=== PATIENT | female | born 1940 | race Caucasian/White ===

== ENCOUNTER 2023-08-09 13:23 | Inpatient (IN) | payer MEDICARE, OTHER, SELFPAY ==
[2023-08-09] VITALS (41 sets, daily range): BP systolic 133–189; BP diastolic 56–110; PULSE 71–96; RESP 10–32; TEMP 36.5–36.8; O2SAT 80–98; BMI 21.0; BMI 21.7
--- NOTE | 2023-08-09 13:39 | ECG_ITS ---
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
--- NOTE | 2023-08-09 13:39 | ED_ITS ---
HPI - Weakness General Chief complaint: Weakness Stated complaint: WEAKNESS Time Seen by Provider: 08/09/23 13:39 History of Present Illness HPI Narrative: To have history of trigeminal neuralgia as well as Parkinson disease and hypertension coming to the ER with few days history of increased decreased p.o. intake and generalized weakness, the patient had 1 episode of nausea and vomiting according to the there was no diarrhea The patient also have no abdominal pain no chest pain no cough no fever and no burning with urination Related Data Home Medications Medication Instructions Recorded Confirmed aspirin 81 mg tablet,delayed 81 mg PO DAILY 08/09/23 08/09/23 release (Adult Low Dose Aspirin) carbamazepine 200 mg tablet 200 mg PO DAILY 08/09/23 08/09/23 carbidopa 25 mg-levodopa 100 mg 1 tab PO TID 08/09/23 08/09/23 tablet cholecalciferol (vitamin D3) 125 125 mcg PO DAILY 08/09/23 08/09/23 mcg (5,000 unit) tablet (Vitamin D3) famotidine 40 mg tablet 40 mg PO .qhs 08/09/23 08/09/23 levothyroxine 150 mcg tablet 150 mcg PO QAM 08/09/23 08/09/23 losartan 100 mg tablet 100 mg PO QDAY 08/09/23 08/09/23 pyridoxine (vitamin B6) 100 mg 100 mg PO DAILY 08/09/23 08/09/23 tablet Allergies Allergy/AdvReac Type Severity Reaction Status Date / Time Sulfa (Sulfonamide Allergy Severe Anaphylaxis Verified 08/09/23 13:29 Antibiotics) Review of Systems ROS Status of ROS 10 or more systems reviewed and unremarkable except as noted in history and below [facility] Medical History (Updated 08/09/23 @ 17:08 by ) Social History Smoking status: Never smoker Exam Narrative Exam Narrative: Nurses notes and vital signs reviewed and patient is not hypoxic. General: Well-appearing and in no apparent distress. Skin: Warm, dry, no pallor noted. No rash. Head: Normocephalic, atraumatic. Neck: Supple, non-tender. Eye: Pupils are equal, round and EOMI. No scleral icterus. Ears, Nose, Mouth, and Throat: TM are clear, no nasal mucosal hypertrophy. Oral mucosa is moist, no posterior oropharynx erythema, uvula is mid-line Cardiovascular: Regular Rate and Rhythm without murmur, gallop or rub. Respiratory: No accessory muscle use or respiratory distress. Lungs are clear to auscultation, no wheezing, rales or rhonchi Chest Wall: no tenderness Back: No midline thoracic or lumbar vertebral tenderness. No CVA tenderness Musculoskeletal: normal ROM, no calf or popliteal tenderness, no lower extremity edema/swelling GI: Abdomen is soft, non-distended. Normal bowel sounds. No masses appreciated. No tenderness to palpation. No rebound, guarding, or rigidity noted. Neurological: A&O x4. No cranial nerve dysfunction observed. No truncal ataxia. Moves all extremities. Sensation intact. Psychiatric: Cooperative and interactive. Normal mood and affect. Constitutional Vital Signs, click to edit/add: Last Vital Signs Temp 97.7 F 08/09/23 13:27 Pulse 80 08/09/23 16:30 Resp 20 08/09/23 16:30 BP 175/88 H 08/09/23 16:30 Pulse Ox 95 08/09/23 16:30 O2 Del Method Room Air 08/09/23 13:27 Course Vital Signs Vital signs: Vital Signs Temperature 97.7 F 08/09/23 13:27 Pulse Rate 82 08/09/23 13:27 Respiratory Rate 16 08/09/23 13:27 Blood Pressure 164/56 H 08/09/23 13:27 Pulse Oximetry 95 08/09/23 13:27 Oxygen Delivery Method Room Air 08/09/23 13:27 Temperature 97.7 F 08/09/23 13:27 Pulse Rate 80 08/09/23 16:30 Respiratory Rate 20 08/09/23 16:30 Blood Pressure 175/88 H 08/09/23 16:30 Pulse Oximetry 95 08/09/23 16:30 Oxygen Delivery Method Room Air 08/09/23 13:27 MDM - Weakness MDM Narrative Medical decision making narrative: EKG showing sinus rhythm with a heart rate of [address] elevation or depression The patient CBC shows leukocytosis chemistry showing some acute kidney injury and after obtaining blood culture the patient was started on Zosyn urinalysis showed no UTI CAT scan abdomen pelvis shows picture of proctocolitis CT of the head showed no acute pathology Right now the patient will be admitted for further hydration as well as management of colitis the patient was started on Zosyn and the case was discussed with Dr. Mccray and he agreed to above-mentioned plan Lab Data Labs: Lab Results 08/09/23 08/09/23 Range/Units 13:50 16:25 WBC 19.2 H (4.0-11.0) 10^3/uL RBC 2.94 L (4.20-5.40) 10^6/uL Hgb 9.9 L (12.0-16.0) g/dL Hct 29.9 L (36.0-48.0) % MCV 101.7 H (81.0-99.0) fL MCH 33.7 (26.7-34.0) pg MCHC 33.1 (29.9-35.2) g/dL RDW 13.2 (11.0-15.0) % Plt Count 323 (150-450) 10^3/uL MPV 11.2 (9.5-13.5) fL Neut % (Auto) 85.8 H (43.0-75.0) % Lymph % (Auto) 5.4 L (20.5-60.0) % [place] % (Auto) 7.5 (1.7-12.0) % Eos % (Auto) 0.2 L (0.9-7.0) % Baso % (Auto) 0.4 (0.2-2.0) % Neut # (Auto) 16.5 H (1.4-6.5) 10^3/uL Lymph # (Auto) 1.0 L (1.2-3.8) 10^3/uL [place] # (Auto) 1.4 H (0.3-0.8) 10^3/uL Eos # (Auto) 0.0 (0.0-0.7) 10^3/uL Baso # (Auto) 0.1 (0.0-0.1) 10^3/uL Abs Immat Gran (auto) 0.14 H (0.00-0.03) 10^3/uL Imm/Tot Granulo (auto) 0.7 H (0.0-0.5) % Sodium 135 L (136-145) mmol/L Potassium 4.0 (3.5-5.1) mmol/L Chloride 99 (98-107) mmol/L Carbon Dioxide 24.1 (21.0-32.0) mmol/L Anion Gap 15.9 BUN 23.0 H (7.0-18.0) mg/dL Creatinine 1.53 H (0.55-1.02) mg/dL Est GFR ( Amer) 39 L (>=60) Est GFR (Non-Af Amer) 32 L (>=60) BUN/Creatinine Ratio 15.0 Glucose 110 H (74-106) mg/dL Lactate 1.4 (0.4-2.0) mmol/L Calcium 9.3 (8.5-10.1) mg/dL Total Bilirubin 0.5 (0.2-1.0) mg/dL AST 27 (15-37) U/L ALT 21 (14-59) U/L Alkaline Phosphatase 74 (46-116) U/L Troponin I High Sens 6.6 (4.0-51.3) pg/mL Total Protein 7.0 (6.4-8.2) g/dL Albumin 3.7 (3.4-5.0) g/dL Globulin 3.3 g/dL Albumin/Globulin Ratio 1.1 Urine Color Yellow (YELLOW) Urine Clarity Clear (CLEAR) Urine pH 6.0 (5.0-9.0) Ur Specific [place] 1.020 (1.005-1.025) Urine Protein 30 A (NEG/TRACE) mg/dL Urine Glucose (UA) Negative (NEGATIVE) mg/dL Urine Ketones Negative (NEGATIVE) mg/dL Urine Occult Blood Negative (NEGATIVE) Urine Nitrite Negative (NEGATIVE) Urine Bilirubin Negative (NEGATIVE) Urine Urobilinogen 0.2 (0.2-1.0) EU/dL Ur Leukocyte Esterase Negative (NEGATIVE) Urine RBC 0-2 (0-2) #/HPF Urine WBC None seen (NONE SEEN) #/HPF Ur Squamous Epith Cells Few A (NONE/RARE) #/LPF Urine Crystals None seen (None Seen) #/HPF Urine Bacteria Small A (NONE SEEN) #/HPF Urine Casts None seen (NONE SEEN) #/LPF Urine Mucus None seen (NONE SEEN) Ur Culture Indicated? Yes Discharge Plan Discharge Chief Complaint: Weakness Clinical Impression: CECY (acute kidney injury), Generalized muscle weakness, Proctocolitis, Leukocytosis Patient Disposition: Admitted As Inpatient Time of Disposition Decision: 17:07 Condition: Good
[2023-08-09 14:03] LABS: Basophils Absolute Auto 0.1 10^3/uL (0.0-0.1); Basophils Percent Auto 0.4 % (0.2-2.0); Eosinophils Percent Auto 0.2 % (0.9-7.0); Hematocrit 29.9 % (36.0-48.0); Hemoglobin 9.9 g/dL (12.0-16.0); Immature Granulocytes Abs Auto 0.14 10^3/uL (0.00-0.03); Immature Granulocytes Pct Auto 0.7 % (0.0-0.5); Lymphocytes Percent Auto 5.4 % (20.5-60.0); Mean Corpuscular HGB Conc 33.1 g/dL (29.9-35.2); Mean Corpuscular Hemoglobin 33.7 pg (26.7-34.0); Mean Corpuscular Volume 101.7 fL (81.0-99.0); Mean Platelet Volume 11.2 fL (9.5-13.5); Monocytes Absolute Auto 1.4 10^3/uL (0.3-0.8); Monocytes Percent Auto 7.5 % (1.7-12.0); Neutrophils Absolute Auto 16.5 10^3/uL (1.4-6.5); Neutrophils Percent Auto 85.8 % (43.0-75.0); Platelet Count 323 10^3/uL (150-450); Red Blood Count 2.94 10^6/uL (4.20-5.40); Red Cell Distribution Width 13.2 % (11.0-15.0); White Blood Count 19.2 10^3/uL (4.0-11.0)
--- NOTE | 2023-08-09 14:15 | CT_ITS ---
The [address] [address] Patient Name: ROGERIO GARCIA MRN: [id number] date: 1940 Sex: F Assigned Patient Location: ER Current Patient Location: ER Accession/Order Number: [id number] Exam Date: 08/09/2023 14:28 Report Date: 08/09/2023 15:10 At the request of: LOLA SINCLAIR Procedure: CT abdomen pelvis wo con CT abdomen pelvis wo con CLINICAL HISTORY: Weakness and constipation. Infection. COMPARISON: None Available. TECHNIQUE: No IV contrast axial CT scan from lung bases through symphysis pubis. Lack of IV contrast limits evaluation of solid organs. Oral contrast was not administered. Coronal and sagittal reconstructed images generated. Dose reduction techniques were achieved by using automated exposure control and/or adjustment of mA and/or kV according to patient size and/or use of iterative reconstruction technique. FINDINGS: CT ABDOMEN FINDINGS: Normal heart size. Lung bases with slight scarring. Liver and spleen normal in size. Multiple calcified splenic granulomas. Normal-sized adrenal glands. Gallbladder and pancreas unremarkable. No renal stones or hydronephrosis. Atherosclerotic aorta without aneurysm. GI tract nondilated without obstruction. WATERPROOFING SUPERVISOR shunt catheter with no shuntoma or coiling. There is wall thickening and inflammatory from the distal transverse colon through the rectum consistent with colitis. Associated congestion but no drainable ascites. Appendix negative. CT PELVIS FINDINGS: Streak artifact from left hip bipolar hemiarthroplasty partially limits the pelvis. No acute bony process. Lumbar spondylosis with chronic compression fracture L1. Atrophic uterus and ovaries. Urinary bladder unremarkable. CT/CT abdomen pelvis wo con IMPRESSION: Distal proctocolitis changes, correlate for infectious or inflammatory. Follow-up to resolution. No obstruction or free air. WATERPROOFING SUPERVISOR shunt catheter. Old healed granulomatous disease. Electronically authenticated by: LAITH HAMLIN Date: 08/09/2023 15:10
[2023-08-09 14:20] LABS: Troponin I High Sensitivity 6.6 pg/mL (4.0-51.3)
[2023-08-09 14:33] LABS: Lactate/Lactic Acid 1.4 mmol/L (0.4-2.0)
[2023-08-09 14:36] LABS: Alanine Aminotransferase 21 U/L (14-59); Albumin Globulin Ratio 1.1; Albumin Level 3.7 g/dL (3.4-5.0); Alkaline Phosphatase 74 U/L (46-116); Anion Gap 15.9; Aspartate Amino Transferase 27 U/L (15-37); Bilirubin Total 0.5 mg/dL (0.2-1.0); Calcium 9.3 mg/dL (8.5-10.1); Carbon Dioxide 24.1 mmol/L (21.0-32.0); Chloride 99 mmol/L (98-107); Estimated GFR (African America 39 (>=60); Estimated GFR (Non-African Ame 32 (>=60); Globulin 3.3 g/dL; Glucose 110 mg/dL (74-106); Sodium 135 mmol/L (136-145)
[2023-08-09] MEDS: 0.9 % SODIUM CHLORIDE 1,000 ML 1000 ML IV (14:47)
--- NOTE | 2023-08-09 15:01 | PC.NURSE ---
IV started by ems
--- NOTE | 2023-08-09 15:20 | CT_ITS ---
The [address] [address] Patient Name: ROGERIO GARCIA MRN: [id number] date: 1940 Sex: F Assigned Patient Location: ER Current Patient Location: ER Accession/Order Number: [id number] Exam Date: 08/09/2023 15:30 Report Date: 08/09/2023 15:56 At the request of: LOLA SINCLAIR Procedure: CT head/brain wo con EXAM: CT head/brain wo con HISTORY: weakness COMPARISON: None. TECHNIQUE: Axial noncontrast CT imaging of the head was performed with coronal and sagittal reformats. This CT exam was performed using one or more of the following dose reduction techniques: Automated exposure control, adjustment of the MA and/or kV according to patient size, or use of iterative reconstruction technique. FINDINGS: Calvarium/skull base: Right frontal approach ventriculostomy catheter with radiopaque portions of the shunt catheter tubing appearing intact. No evidence of acute fracture or destructive lesion. Mastoids and middle ears demonstrate no substantial mucosal disease. Bilateral hoopa ocular lens replacements. Paranasal sinuses: No air fluid levels. Brain: No acute intracranial hemorrhage. No acute large vascular territory infarct. No mass lesion or mass effect. Moderate parenchymal volume loss. The right frontal approach ventriculostomy catheter tip terminates at the septum pellucidum near the level of the foramen of Cardona. Intracranial atherosclerosis. CT/CT head/brain wo con IMPRESSION: 1. No acute large vascular territory infarct or acute intracranial hemorrhage. 2. Right ventriculostomy catheter. No overt obstructing hydrocephalus is seen although direct comparison with priors would be of benefit to evaluate for interval change in size in morphologic appearance of the ventricular system. Electronically authenticated by: GABO KENDALL Date: 08/09/2023 15:56
[2023-08-09 16:52] LABS: Bilirubin Urine NEGATIVE (NEGATIVE); Blood Urine NEGATIVE (NEGATIVE); Clarity Urine CLEAR (CLEAR); Color Urine YELLOW (YELLOW); Glucose Urine UA NEGATIVE (NEGATIVE); Ketones Urine NEGATIVE (NEGATIVE); Leukocyte Esterase Urine NEGATIVE (NEGATIVE); Nitrite Urine NEGATIVE (NEGATIVE); Protein Urine 30 mg/dL (NEG/TRACE); Urobilinogen Urine 0.2 EU/dL (0.2-1.0)
[2023-08-09 16:53] LABS: Urine Microscopic Indicated YES
[2023-08-09 17:01] LABS: Bacteria Urine SMALL #/HPF (NONE SEEN); RBC Urine 0-2 #/HPF (0-2); WBC Urine NONE SEEN #/HPF (NONE SEEN)
[2023-08-09 17:02] LABS: Cast Seen? NONE SEEN #/LPF (NONE SEEN); Crystals Seen? None Seen #/HPF (None Seen); Mucus Urine NONE SEEN (NONE SEEN); Squamous Epithelial Cell Urine FEW #/LPF (NONE/RARE); Urine Culture Indicated YES
[2023-08-09] MEDS: LACTATED RINGER'S SOLUTION 1,000 ML 125 ML IV (18:01)
[2023-08-09] MEDS: CEFTRIAXONE 1,000 MG in 0.9 % SODIUM CHLORIDE 50 ML 100 MG IV (18:05)
[2023-08-09] MEDS: METRONIDAZOLE/SODIUM CHLORIDE 500 MG/100 ML PREMIX 100 MG IV (18:44)
[2023-08-09] MEDS: CARBIDOPA/LEVODOPA 25 MG-100 MG TABLET 1 TAB PO (21:21)
[2023-08-09] MEDS: FAMOTIDINE 20 MG TABLET 40 MG PO (21:22)
[2023-08-09] MEDS: CARBAMAZEPINE 200 MG TABLET PO (21:22)
[2023-08-10] VITALS (15 sets, daily range): BP systolic 109–152; BP diastolic 72–79; PULSE 70–96; RESP 18–20; TEMP 36.5–36.8; O2SAT 91–94
[2023-08-10] MEDS: METRONIDAZOLE/SODIUM CHLORIDE 500 MG/100 ML PREMIX 100 MG IV ×3 (01:40→17:02)
[2023-08-10] MEDS: LACTATED RINGER'S SOLUTION 1,000 ML 125 ML IV ×3 (03:10→19:23)
[2023-08-10 05:06] LABS: Basophils Absolute Auto 0.1 10^3/uL (0.0-0.1); Basophils Percent Auto 0.7 % (0.2-2.0); Eosinophils Absolute Auto 0.3 10^3/uL (0.0-0.7); Hematocrit 24.1 % (36.0-48.0); Hemoglobin 8.2 g/dL (12.0-16.0); Immature Granulocytes Abs Auto 0.08 10^3/uL (0.00-0.03); Immature Granulocytes Pct Auto 0.8 % (0.0-0.5); Lymphocytes Absolute Auto 1.7 10^3/uL (1.2-3.8); Lymphocytes Percent Auto 17.3 % (20.5-60.0); Mean Corpuscular Hemoglobin 34.3 pg (26.7-34.0); Mean Corpuscular Volume 100.8 fL (81.0-99.0); Mean Platelet Volume 11.5 fL (9.5-13.5); Monocytes Absolute Auto 1.2 10^3/uL (0.3-0.8); Monocytes Percent Auto 12.2 % (1.7-12.0); Neutrophils Absolute Auto 6.6 10^3/uL (1.4-6.5); Platelet Count 264 10^3/uL (150-450); Red Blood Count 2.39 10^6/uL (4.20-5.40); Red Cell Distribution Width 13.2 % (11.0-15.0)
[2023-08-10 05:39] LABS: Alanine Aminotransferase 14 U/L (14-59); Albumin Level 2.9 g/dL (3.4-5.0); Alkaline Phosphatase 58 U/L (46-116); Anion Gap 12.2; Aspartate Amino Transferase 20 U/L (15-37); BUN Creatinine Ratio 11.8; Bilirubin Total 0.3 mg/dL (0.2-1.0); Calcium 8.1 mg/dL (8.5-10.1); Carbon Dioxide 24.7 mmol/L (21.0-32.0); Chloride 108 mmol/L (98-107); Estimated GFR (African America 45 (>=60); Estimated GFR (Non-African Ame 37 (>=60); Globulin 2.8 g/dL; Glucose 99 mg/dL (74-106); Potassium 3.9 mmol/L (3.5-5.1); Sodium 141 mmol/L (136-145); Total Protein 5.7 g/dL (6.4-8.2)
[2023-08-10] MEDS: LEVOTHYROXINE SODIUM 100 MCG TABLET 150 MCG PO (06:06)
[2023-08-10] MEDS: CARBIDOPA/LEVODOPA 25 MG-100 MG TABLET 1 TAB PO ×3 (06:06→21:22)
[2023-08-10] MEDS: ASPIRIN 81 MG TABLET.DR PO (08:20)
[2023-08-10] MEDS: PYRIDOXINE HCL (VITAMIN B6) 50 MG TABLET 100 MG PO (08:20)
[2023-08-10] MEDS: CHOLECALCIFEROL (VITAMIN D3) 25 MCG/1,000 UNITS TABLET 125 MCG PO (08:21)
[2023-08-10] MEDS: LOSARTAN POTASSIUM 50 MG TABLET 100 MG PO (09:19)
--- NOTE | 2023-08-10 09:53 | P.HP_ITS ---
H&P: HPI History of Present Illness Chief complaint: WEAKNESS PROTOCOLITIS Narrative: Patient presented to the emergency room with increasing abdominal pain. Some loose stools. Found to have proctocolitis with significantly elevated white blood cell count. Patient admitted for IV therapy no history of this per patient Review of Systems ROS Status of ROS 10 or more systems reviewed and unremarkable except as noted in history and below [facility] Medical History (Updated 08/09/23 @ 18:35 by Dawna Villanueva) Surgical History (Updated 08/09/23 @ 18:35 by Dawna Villanueva) Family History (Updated 08/09/23 @ 18:37 by Dawna Villanueva) Father Family history of cancer Social History (Updated 08/09/23 @ 18:39 by Dawna Villanueva) Within the past year, how often did you have a drink containing alcohol: 2-3 times a week Within the past year, how many standard drinks containing alcohol did you have on a typical day: 1 or 2 Within the past year, how often did you have six or more drinks on one occasion: never Total score: 0 Score interpretation: Questions 2 and 3 are 0. It can be assumed that the patient's drinking is below the recommended limits. However, please confirm the accuracy of the patient's alcohol intake over the last few months. Smoking status: Former smoker Non-prescribed substance use: denies use Previous occupational history: retired Highest level of school completed/degree received: high school graduate Are you now , , , , never or living with a partner: Little interest or pleasure in doing things: not at all Feeling down, depressed, or hopeless: not at all Feel stressed/tense/nervous/anxious/difficulty sleeping: only a little Do you think of yourself as: straight/heterosexual Gender Identity: female Meds Home Medications and Allergies Home Medications Medication Instructions Recorded Confirmed Type aspirin 81 mg tablet,delayed 81 mg PO DAILY 08/09/23 08/09/23 History release (Adult Low Dose Aspirin) carbamazepine 200 mg tablet 200 mg PO DAILY 08/09/23 08/09/23 History carbidopa 25 mg-levodopa 100 mg 1 tab PO TID 08/09/23 08/09/23 History tablet cholecalciferol (vitamin D3) 125 125 mcg PO DAILY 08/09/23 08/09/23 History mcg (5,000 unit) tablet (Vitamin D3) famotidine 40 mg tablet 40 mg PO .qhs 08/09/23 08/09/23 History levothyroxine 150 mcg tablet 150 mcg PO QAM 08/09/23 08/09/23 History losartan 100 mg tablet 100 mg PO QDAY 08/09/23 08/09/23 History pyridoxine (vitamin B6) 100 mg 100 mg PO DAILY 08/09/23 08/09/23 History tablet calcium carbonate 600 mg-vitamin 1 tab PO DAILY 08/10/23 08/10/23 History D3 20 mcg (800 unit) chewable tablet (Caltrate 600 plus D) ibuprofen 200 mg-diphenhydramine 1 cap PO QPM PRN sleep 08/10/23 08/10/23 History HCl 25 mg capsule (Ibuprofen PM) multithera 1 cap PO DAILY PRN vitamin if 08/10/23 08/10/23 History needed Allergies Allergy/AdvReac Type Severity Reaction Status Date / Time Sulfa (Sulfonamide Allergy Severe Anaphylaxis Verified 08/09/23 13:29 Antibiotics) Exam Constitutional Vital Signs, click to edit/add: Last Vital Signs Temp 98.3 F 08/10/23 06:00 Pulse 75 08/10/23 07:49 Resp 20 08/10/23 06:00 BP 150/72 H 08/10/23 06:00 Pulse Ox 91 L 08/10/23 06:00 O2 Del Method Room Air 08/10/23 06:00 Documenting provider has reviewed patient's vital signs: yes Common normals: apparent distress HENWV Common normals: moist oral mucous membranes Chest Common normals: inspection of chest normal and palpation of chest normal Respiratory Common normals: normal respiratory effort, no retractions and clear to auscultation bilaterally Cardio Common normals: regular rate, regular rhythm and no murmurs GI Common normals: Normal to inspection, nondistended, normoactive bowel sounds present Neuro Common normals: oriented x3 Results Labs Labs: Short CBC 08/09/23 08/10/23 Range/Units 13:50 04:24 WBC 19.2 H 10.0 (4.0-11.0) 10^3/uL Hgb 9.9 L 8.2 L (12.0-16.0) g/dL Hct 29.9 L 24.1 L (36.0-48.0) % Plt Count 323 264 (150-450) 10^3/uL BMP 08/09/23 08/10/23 13:50 04:24 Sodium 135 L 141 Potassium 4.0 3.9 Chloride 99 108 H Carbon Dioxide 24.1 24.7 BUN 23.0 H 16.0 Creatinine 1.53 H 1.36 H Glucose 110 H 99 Calcium 9.3 8.1 L Liver Function 08/09/23 08/10/23 Range/Units 13:50 04:24 Total Bilirubin 0.5 0.3 (0.2-1.0) mg/dL AST 27 20 (15-37) U/L ALT 21 14 (14-59) U/L Alkaline Phosphatase 74 58 (46-116) U/L Albumin 3.7 2.9 L (3.4-5.0) g/dL Urine 08/09/23 Range/Units 16:25 Urine Color Yellow (YELLOW) Urine Clarity Clear (CLEAR) Urine pH 6.0 (5.0-9.0) Ur Specific [place] 1.020 (1.005-1.025) Urine Protein 30 A (NEG/TRACE) mg/dL Urine Glucose (UA) Negative (NEGATIVE) mg/dL Assessment and Plan Assessment and Plan (1) CECY (acute kidney injury): (2) Generalized muscle weakness: (3) Proctocolitis: (4) Leukocytosis: Plan Clinic pulm hypertension, significant leukocytosis, resulting in sepsis secondary to proctocolitis-continue with antibiotics, white blood cell count is better today, blood cultures are pending, check stool for PCR Severe generalized weakness-patient would prefer to not go to rehab. Have patient make sure she works aggressively with physical therapy for improve overall strength and conditioning Iron deficiency anemia-lower this morning than previous day, will check stool studies and repeat CBC later today Significant dehydration with hyponatremia-improved today, continue with fluid resuscitation as kidney function is overall improving as well Hypoalbuminemia consistent with moderate protein calorie malnutrition-diet management
[2023-08-10] MEDS: CARBAMAZEPINE 200 MG TABLET PO ×2 (11:02→21:23)
[2023-08-10 12:14] LABS: Basophils Absolute Auto 0.1 10^3/uL (0.0-0.1); Basophils Percent Auto 0.6 % (0.2-2.0); Eosinophils Absolute Auto 0.3 10^3/uL (0.0-0.7); Eosinophils Percent Auto 3.3 % (0.9-7.0); Hematocrit 25.4 % (36.0-48.0); Hemoglobin 8.5 g/dL (12.0-16.0); Immature Granulocytes Abs Auto 0.08 10^3/uL (0.00-0.03); Immature Granulocytes Pct Auto 0.8 % (0.0-0.5); Lymphocytes Absolute Auto 1.3 10^3/uL (1.2-3.8); Lymphocytes Percent Auto 13.2 % (20.5-60.0); Mean Corpuscular HGB Conc 33.5 g/dL (29.9-35.2); Mean Corpuscular Hemoglobin 34.1 pg (26.7-34.0); Mean Platelet Volume 10.4 fL (9.5-13.5); Monocytes Absolute Auto 1.2 10^3/uL (0.3-0.8); Monocytes Percent Auto 12.6 % (1.7-12.0); Neutrophils Absolute Auto 6.7 10^3/uL (1.4-6.5); Neutrophils Percent Auto 69.5 % (43.0-75.0); Platelet Count 251 10^3/uL (150-450); Red Blood Count 2.49 10^6/uL (4.20-5.40); Red Cell Distribution Width 13.2 % (11.0-15.0); White Blood Count 9.6 10^3/uL (4.0-11.0)
[2023-08-10] MEDS: CEFTRIAXONE 1,000 MG in 0.9 % SODIUM CHLORIDE 50 ML 100 MG IV (15:46)
[2023-08-10 16:15] LABS: Adenovirus F 40/41 NOT DETECTED (NOT DETECTE); Astrovirus NOT DETECTED (NOT DETECTE); Campylobacter NOT DETECTED (NOT DETECTE); Cryptosporidium NOT DETECTED (NOT DETECTE); Cyclospora cayetanensis NOT DETECTED (NOT DETECTE); Entamoeba histolytica NOT DETECTED (NOT DETECTE); Enteroaggregative E.coli NOT DETECTED (NOT DETECTE); Enteropathogenic E.coli NOT DETECTED (NOT DETECTE); Enterotoxigenic E. coli NOT DETECTED (NOT DETECTE); Giardia lamblia NOT DETECTED (NOT DETECTE); Norovirus GI/GII NOT DETECTED (NOT DETECTE); Plesiomonas shigelloides NOT DETECTED (NOT DETECTE); Rotavirus A NOT DETECTED (NOT DETECTE); Salmonella NOT DETECTED (NOT DETECTE); Sapovirus NOT DETECTED (NOT DETECTE); Shiga-like toxin-producing E.C NOT DETECTED (NOT DETECTE); Shigella/Enteroinvasive E.coli NOT DETECTED (NOT DETECTE); Vibrio NOT DETECTED (NOT DETECTE); Vibrio cholerae NOT DETECTED (NOT DETECTE); Yersinia enterocolitica NOT DETECTED (NOT DETECTE)
[2023-08-10 16:37] LABS: Occult Blood Positive
[2023-08-10] MEDS: PANTOPRAZOLE SODIUM 40 MG VIAL IV (21:22)
[2023-08-10] MEDS: FAMOTIDINE 20 MG TABLET 40 MG PO (21:23)
[2023-08-11] VITALS (8 sets, daily range): BP systolic 148–154; BP diastolic 78–80; PULSE 70–86; RESP 18; TEMP 36.4–36.7; O2SAT 93–99
[2023-08-11] MEDS: METRONIDAZOLE/SODIUM CHLORIDE 500 MG/100 ML PREMIX 100 MG IV ×2 (02:14→09:28)
[2023-08-11 04:53] LABS: Hemoglobin 9.1 g/dL (12.0-16.0); Mean Corpuscular HGB Conc 33.7 g/dL (29.9-35.2); Mean Corpuscular Hemoglobin 33.8 pg (26.7-34.0); Mean Corpuscular Volume 100.4 fL (81.0-99.0); Mean Platelet Volume 11.6 fL (9.5-13.5); Platelet Count 317 10^3/uL (150-450); Red Blood Count 2.69 10^6/uL (4.20-5.40); Red Cell Distribution Width 13.2 % (11.0-15.0); White Blood Count 12.2 10^3/uL (4.0-11.0)
[2023-08-11] MEDS: CARBIDOPA/LEVODOPA 25 MG-100 MG TABLET 1 TAB PO (05:33)
[2023-08-11] MEDS: LEVOTHYROXINE SODIUM 100 MCG TABLET 150 MCG PO (05:33)
[2023-08-11] MEDS: LACTATED RINGER'S SOLUTION 1,000 ML 125 ML IV (05:34)
[2023-08-11 06:34] LABS: Alanine Aminotransferase 13 U/L (14-59); Albumin Level 3.4 g/dL (3.4-5.0); Alkaline Phosphatase 62 U/L (46-116); Anion Gap 12.3; Aspartate Amino Transferase 20 U/L (15-37); BUN Creatinine Ratio 8.5; Bilirubin Total 0.3 mg/dL (0.2-1.0); Calcium 8.9 mg/dL (8.5-10.1); Carbon Dioxide 26.9 mmol/L (21.0-32.0); Chloride 105 mmol/L (98-107); Estimated GFR (African America 54 (>=60); Estimated GFR (Non-African Ame 44 (>=60); Globulin 3.4 g/dL; Glucose 114 mg/dL (74-106); Potassium 3.2 mmol/L (3.5-5.1); Sodium 141 mmol/L (136-145); Total Protein 6.8 g/dL (6.4-8.2)
--- NOTE | 2023-08-11 08:01 | P.DS_ITS ---
DS: Providers Provider Date of admission: 08/09/23 17:44 Primary care physician: Non-Staff Physician, Consults: 08/10/23 09:54 Physical Therapy Eval and Treat Routine Reason for consultation: norma Has provider been notified: No DS: Diagnosis Discharge Diagnosis (1) CECY (acute kidney injury): (2) Generalized muscle weakness: (3) Proctocolitis: (4) Leukocytosis: Plan uncontrolled hypertension, significant leukocytosis, resulting in sepsis secondary to proctocolitis Severe generalized weakness Iron deficiency anemia Significant dehydration with hyponatremia Hypoalbuminemia consistent with moderate protein calorie malnutrition DS: Summary Hospital Course Hospital Course: Patient present to the emergency room with severe diarrhea. Leukocytosis, hypokalemia, acute kidney injury, uncontrolled hypertension secondary to acute proctocolitis. She has no history of this in the past. Has not had a colonoscopy in some time. with severity of the symptoms and leukocytosis patient was admitted for IV therapy. Patient placed on IV antibiotics she had improvement in her white blood cell count. White blood cell count is back down to normal yesterday. She is maintaining current antibiotics secondary to the severity of her diarrhea persisting. Her diarrhea is improved today. Potassium is low and will supplement that prior to discharge. But patient will be discharged home in improving condition. Medications see list. Follow-up with her PCP within the next week. Time Spent with Patient Time attestation: Total time spent providing and/or coordinating discharge services: Exam Constitutional Vital Signs, click to edit/add: Last Vital Signs Temp 98.1 F 08/11/23 05:47 Pulse 74 08/11/23 05:47 Resp 18 08/11/23 05:47 BP 154/80 H 08/11/23 05:47 Pulse Ox 93 L 08/11/23 05:47 O2 Del Method Room Air 08/11/23 05:47 Documenting provider has reviewed patient's vital signs: yes Common normals: apparent distress HENMT Common normals: moist oral mucous membranes Chest Common normals: inspection of chest normal and palpation of chest normal Respiratory Common normals: normal respiratory effort, no retractions and clear to auscultation bilaterally Cardio Common normals: regular rate, regular rhythm and no murmurs GI Common normals: Normal to inspection, nondistended, normoactive bowel sounds present Neuro Common normals: oriented x3 DS: Data Data Completed and Pending Labs on day of discharge: Labs from last 24 hours 08/11/23 08/10/23 08/10/23 03:52 16:00 12:10 WBC 9.6 RBC 2.49 L Hgb 8.5 L Hct 25.4 L MCV 102.0 H MCH 34.1 H MCHC 33.5 RDW 13.2 Plt Count 251 MPV 10.4 Neut % (Auto) 69.5 Lymph % (Auto) 13.2 L [place] % (Auto) 12.6 H Eos % (Auto) 3.3 Baso % (Auto) 0.6 Neut # (Auto) 6.7 H Lymph # (Auto) 1.3 [place] # (Auto) 1.2 H Eos # (Auto) 0.3 Baso # (Auto) 0.1 Abs Immat Gran (auto) 0.08 H Imm/Tot Granulo (auto) 0.8 H Sodium 141 Potassium 3.2 L Chloride 105 Carbon Dioxide 26.9 Anion Gap 12.3 BUN 10.0 Creatinine 1.17 H Est GFR ( Amer) 54 L Est GFR (Non-Af Amer) 44 L BUN/Creatinine Ratio 8.5 Glucose 114 H Calcium 8.9 Total Bilirubin 0.3 AST 20 ALT 13 L Alkaline Phosphatase 62 Total Protein 6.8 Albumin 3.4 Globulin 3.4 Albumin/Globulin Ratio 1.0 Stool Occult Blood Positive A Stl C. cayetanensis PCR Not detected Stool Rotavirus (PCR) Not detected Stool Adenovirus (PCR) Not detected Stool Astrovirus (PCR) Not detected Stool Campylobacter PCR Not detected Stool Cryptosporidium PCR Not detected St Sh/Enteroin Ecoli PCR Not detected Stl Enterotoxigenic E PCR Not detected Stool EPEC (PCR) Not detected Stl E. histolytica PCR Not detected Stool Giardia Lamblia PCR Not detected Stl P. shigelloides PCR Not detected Stool Salmonella PCR Not detected Stool Sapovirus (PCR) Not detected Stl Shiga-like Tx [address].enterocolitica PCR Not detected Stl Vibrio cholerae PCR Not detected Stl Enteroaggr Ecoli PCR Not detected Stl Norovirus GI/GII PCR Not detected C. difficile Toxin A&B Not detected Vibrio Culture Not detected Discharge Plan Discharge Disposition: Home, Self-Care Condition: Good Discharge Medications: New cefdinir 300 mg capsule 300 mg PO Q12H 10 Days Qty: 20 0RF metronidazole 500 mg tablet 500 mg PO Q8H Qty: 30 0RF Continued carbamazepine 200 mg tablet 200 mg PO DAILY carbidopa-levodopa 25-100 mg tablet 1 tab PO TID levothyroxine 150 mcg tablet 150 mcg PO QAM losartan 100 mg tablet 100 mg PO QDAY famotidine 40 mg tablet 40 mg PO .qhs aspirin [Adult Low Dose Aspirin] 81 mg tablet,delayed release (DR/EC) 81 mg PO DAILY pyridoxine (vitamin B6) 100 mg tablet 100 mg PO DAILY cholecalciferol (vitamin D3) [Vitamin D3] 125 mcg (5,000 unit) tablet 125 mcg PO DAILY Caltrate 600 plus D 600 mg-20 mcg (800 unit) tablet,chewable 1 tab PO DAILY Ibuprofen PM 200-25 mg capsule 1 cap PO QPM PRN (Reason: sleep) multithera capsule 1 cap PO DAILY PRN (Reason: vitamin if needed) Forms: Portal Instructions Follow Up Appointments: Dr Ayers aug @11:45 is out until then if needs to be seen sooner call office there is a Doctor covering for him
[2023-08-11 08:14] LABS: Eosinophils Absolute Manual 0.97 10^3/uL (0.00-0.70); Lymphocytes Absolute Manual 2.31 10^3/uL (1.20-3.80); Monocytes Absolute Manual 1.58 10^3/uL (0.30-0.80); Segmented Neut Absolute Manual 7.32 10^3/uL (1.4-6.5)
[2023-08-11 08:17] LABS: Acanthocytes 1+; Poikilocytosis 1+; Tear Drop Cells 1+
[2023-08-11] MEDS: POTASSIUM CHLORIDE 10 MEQ ER TABLET 20 MEQ PO ×2 (08:17→11:59)
[2023-08-11] MEDS: LOSARTAN POTASSIUM 50 MG TABLET 100 MG PO (08:17)
[2023-08-11] MEDS: CARBAMAZEPINE 200 MG TABLET PO (08:18)
[2023-08-11] MEDS: ASPIRIN 81 MG TABLET.DR PO (08:18)
[2023-08-11] MEDS: PYRIDOXINE HCL (VITAMIN B6) 50 MG TABLET 100 MG PO (08:18)
[2023-08-11] MEDS: CALCIUM CARBONATE 600 MG/VITAMIN D3 400 IU TABLET 1 TAB PO (08:18)
[2023-08-11] MEDS: MULTIVITAMIN TABLET 1 TAB PO (08:18)
--- NOTE | 2023-08-11 08:47 | CM.NOTE ---
Rounds made with aubrie Campbell to discharge to home and f/u with PCP. No discharge needs identified.
--- NOTE | 2023-08-11 10:17 | SWNOTE1 ---
SW met with pt to discuss dc needs. Pt lives at home with her . She uses a rolling walker at home. She has no concerns about discharge at this time. SW did talk with her about outpt therapy and that it was recommended by PT. Pt is going to to follow up with her PCP in regards to this. SW to follow as needed.
--- NOTE | 2023-08-12 15:38 | CM.DCFOLLOWU ---
Person spoke with:patient How are you feeling? well How is your pain? no pain Did you understand your discharge instructions? yes Do you have any questions about your discharge instructions? no Were you given any prescriptions at discharge? yes Were you able to get your prescriptions filled? yes Do you understand how to take your medications as ordered? yes Do you have any questions about your follow up appointment and do you plan to keep your follow up appointment? no questions, reviewed her follow up appointment date and time Is there anything else that you would like to discuss? no Questions/Comments/Concerns/Other:
== END 2023-08-11 13:27 | disposition home or self-care (01) | DRG 872 ==
LOC: ER 17:08 → MS 17:50
PROVIDERS: Admitting Provider Internal Medicine; Emergency Provider Emergency Medicine; Visit Provider Family Medicine
DX: A41.9 Sepsis, unspecified organism (principal); K51.30 Ulcerative (chronic) rectosigmoiditis without complications; N17.9 Acute kidney failure, unspecified; E87.1 Hypo-osmolality and hyponatremia; E44.0 Moderate protein-calorie malnutrition; M62.81 Muscle weakness (generalized); I10 Essential (primary) hypertension; I27.20 Pulmonary hypertension, unspecified; D50.9 Iron deficiency anemia, unspecified; E86.0 Dehydration; Z87.891 Personal history of nicotine dependence; Z79.82 Long term (current) use of aspirin; Z79.899 Other long term (current) drug therapy; Z79.890 Hormone replacement therapy; Z68.21 Body mass index [BMI] 21.0-21.9, adult
CPT/HCPCS: 36415; 70450; 74176; 80053; 81001; 83605; 84484; 85025; 85027; 87040; 87086; 87150; 87186; 87493; 87507; 93005; 94761; 96361; 96365; 96366; 96367; 96375; 96376; 97161; 99285; G0328

== ENCOUNTER 2023-08-29 11:17 | Outpatient (OUT) | payer MEDICARE, OTHER, SELFPAY ==
[2023-08-29 11:37] LABS: Basophils Absolute Auto 0.1 10^3/uL (0.0-0.1); Eosinophils Absolute Auto 0.3 10^3/uL (0.0-0.7); Eosinophils Percent Auto 4.4 % (0.9-7.0); Hematocrit 30.4 % (36.0-48.0); Hemoglobin 10.2 g/dL (12.0-16.0); Immature Granulocytes Abs Auto 0.03 10^3/uL (0.00-0.03); Immature Granulocytes Pct Auto 0.5 % (0.0-0.5); Lymphocytes Absolute Auto 1.3 10^3/uL (1.2-3.8); Lymphocytes Percent Auto 20.3 % (20.5-60.0); Mean Corpuscular HGB Conc 33.6 g/dL (29.9-35.2); Mean Corpuscular Hemoglobin 34.2 pg (26.7-34.0); Mean Platelet Volume 11.1 fL (9.5-13.5); Monocytes Absolute Auto 1.1 10^3/uL (0.3-0.8); Monocytes Percent Auto 16.5 % (1.7-12.0); Neutrophils Absolute Auto 3.7 10^3/uL (1.4-6.5); Neutrophils Percent Auto 56.3 % (43.0-75.0); Platelet Count 345 10^3/uL (150-450); Red Blood Count 2.98 10^6/uL (4.20-5.40); Red Cell Distribution Width 13.9 % (11.0-15.0); White Blood Count 6.6 10^3/uL (4.0-11.0)
[2023-08-29 13:00] LABS: Percent Iron Saturation 67.8 %; Sodium 137 mmol/L (136-145)
[2023-08-29 13:01] LABS: Aspartate Amino Transferase 17 U/L (15-37); BUN Creatinine Ratio 9.1; Bilirubin Total 0.5 mg/dL (0.2-1.0); Calcium 9.8 mg/dL (8.5-10.1); Carbon Dioxide 27.5 mmol/L (21.0-32.0); Chloride 99 mmol/L (98-107); Estimated GFR (African America 47 (>=60); Estimated GFR (Non-African Ame 38 (>=60); Glucose 101 mg/dL (74-106); Magnesium 1.3 mg/dL (1.8-2.4); Potassium 3.5 mmol/L (3.5-5.1)
[2023-08-29 13:02] LABS: Alanine Aminotransferase 15 U/L (14-59); Albumin Globulin Ratio 1.1; Albumin Level 3.8 g/dL (3.4-5.0); Alkaline Phosphatase 40 U/L (46-116); Globulin 3.4 g/dL; Total Protein 7.2 g/dL (6.4-8.2)
== END 2023-08-29 11:18 | disposition home or self-care (01) ==
LOC: LAB 11:20
PROVIDERS: PCP Family Medicine; Visit Provider Family Medicine
DX: N17.9 Acute kidney failure, unspecified (principal); E87.1 Hypo-osmolality and hyponatremia; E87.6 Hypokalemia; D64.9 Anemia, unspecified; E44.0 Moderate protein-calorie malnutrition
CPT/HCPCS: 36415; 80053; 83540; 83550; 83735; 85025

== ENCOUNTER 2023-09-02 11:06 | Outpatient (OUT) | payer MEDICARE, OTHER, SELFPAY | END 2023-09-02 11:07 | disposition home or self-care (01) | LOC: LAB 11:08 | PROVIDERS: PCP Family Medicine; Visit Provider Family Medicine | DX: N30.01 Acute cystitis with hematuria (principal) | CPT/HCPCS: 87086 ==